=== PATIENT | male | born 1940 | race Caucasian/White ===

== ENCOUNTER 2024-08-09 13:22 | Outpatient (CLI) | payer MEDICARE, SELFPAY ==
--- NOTE | ~2024-08-09 | XR_ITS ---
[id number] 10/03/11 10:09:00 [id number] ([facility]) : SHOULDER ARTHROGRAM RIGHT 10/03/11 10:09:00 INDICATION: Right shoulder pain. TECHNIQUE: A timeout was performed to verify the patient's name, date of and procedure to be pe rformed. The procedure including the risk and benefits were discussed to the patient. Risk discussed included bleeding and infection. The patient understood the risk and agreed to proceed. The skin overlying the right glenohumeral joint was prepped and draped in the usual sterile fashion. Anesthetic was administered with 1% lidocaine subcutaneously. A 22G needle was advanced under fluoroscopic guidance into the joint. Omnipaque 240 (2 cc mixed with 1% lidocaine) was injected through the spinal needle which opacified the glenohumeral joint space. Subsequently, injectate consisting of 80 mg of Depo-Medrol and approximately 6 cc of 1% lidocaine wit hout epinephrine was instilled. The needle was then removed and the entry site was cleaned and dress ed. There were no immediate complications. FINDINGS: Real-time fluoroscopy demonstrates the needle and contrast in the right glenohumeral joint. IMPRESSION: Technically successful right glenohumeral joint injection of contrast. Technically successful injection of the right glenohumeral joint space with 80 mg of Depo-Medrol and approximately 6 cc of 1% lidocaine. Reviewed, dictated and finalized at location A. XER
--- NOTE | 2024-08-09 17:07 | PM.OP ---
Procedure Note - Brief Procedure Note - Brief Date of procedure: 08/09/24 Primary osteoarthritis, right shoulder Procedure performed: fluoro guided R glenohumeral joint injection Surgeon: Stacey Saldivar MD Description of procedure: sterile technique, fluoro guidance, 80mg depomedrol with 6cc 1% lidocaine injected (after R shoulder arthrogram confirming positioning w 2cc Omnipaque). Estimated blood loss (mL): 0.1 Pathology: None sent Complications: None Condition: Stable Disposition: Other
== END 2024-08-09 13:23 | disposition home or self-care (01) ==
PROVIDERS: Visit Provider Orthopaedic Surgery
DX: M19.011 Primary osteoarthritis, right shoulder (principal)
CPT/HCPCS: 20610; 77002; J1010; J2003; Q9966

== ENCOUNTER 2025-03-15 13:07 | Outpatient (CLI) | payer MEDICARE, SELFPAY ==
--- NOTE | ~2025-03-15 | XR_ITS ---
EXAMINATION: XR lg joint inject/asp w image DATE: 03/15/2025 14:42 INDICATION: Primary osteoarthritis of the right shoulder TECHNIQUE: A time-out was performed to verify the patient's name, date of , and procedure to b e performed. The procedure including the risks, benefits, and alternatives was discussed with the pat ient. Risks discussed included bleeding and infection. The patient understood the risks and agreed to proceed. The skin overlying the rotator cuff interval of the right glenohumeral joint was prepped a nd draped in usual sterile fashion. Anesthetic was administered with 1% lidocaine subcutaneously. A 22 G needle was advanced under fluoroscopic guidance into the joint. Injection of 1 mL of Omnipaque 240 confirmed intra-articular position of the needle. Subsequently, injectate consisting of 4 mL a 3:1 mixture of 1% lidocaine: 80 mg/mL Depo-Medrol for a total dosage of 80 mg Depo-Medrol was instill ed. Washout of contrast was seen confirming intra-articular administration. The needle was removed an d the entry site was cleaned and dressed. There were no immediate complications. Fluoroscopy exposur e time was 0.1 minutes. The total number of images was 2. Total DAP was 0.356 Gycm^2. FINDINGS: Real-time fluoroscopy demonstrates the needle and contrast in the right glenohumeral joint. Patient's pain prior to procedure:01/28. Patient's pain following the procedure: 09/30. IMPRESSION: 1. Successful right glenohumeral joint injection of local anesthetic and steroid with decrease in the patient's presenting pain. Reviewed, dictated and finalized at location A. IMPRESSION: 1. Successful right glenohumeral joint injection of local anesthetic and steroi d with decrease in the patient's presenting pain.
== END 2025-03-15 13:08 | disposition home or self-care (01) ==
PROVIDERS: Visit Provider Orthopaedic Surgery
DX: M19.011 Primary osteoarthritis, right shoulder (principal)
CPT/HCPCS: 20610; 77002; J1010; J2003; Q9966